=== PATIENT | female | born 1975 | race Caucasian/White ===

== ENCOUNTER 2018-02-07 15:25 | Emergency (ER) | payer BC ==
[~2018-02-07] VITALS: Ht 157.5 cm; Wt 81.8 kg
[~2018-02-07 15:25] MED LIST: LEVEMIR100 U/ML SQ; LEVIMIR SQ; NO HOME MEDICATIONS; NORCO 325 MG-51 TAB PO; PEN-VEE K500 MG PO; PRENATAL1 TA1 PO; PROTONIX 40MG T40 MG PO
[2018-02-07 15:29] VITALS: BP 137/87; TEMP 98.2
[2018-02-07] MEDS ORDERED: CRUTCHES MC (16:24)
[2018-02-07] MEDS ORDERED: NORCO 325 MG-51 TAB PO (16:43)
[2018-02-07 17:00] VITALS: PULSE 75
== END 2018-02-07 17:05 | disposition home or self-care (01) ==
LOC: COL.ER 15:25
DX: S92.352A Displaced fracture of fifth metatarsal bone, left foot, initial encounter for closed fracture (principal); Z98.51 Tubal ligation status; Z98.890 Other specified postprocedural states; Z90.89 Acquired absence of other organs; X50.0XXA Overexertion from strenuous movement or load, initial encounter; Y92.89 Other specified places as the place of occurrence of the external cause
CPT/HCPCS: Q4045

== ENCOUNTER → 2019-05-09 | Outpatient (CLI) | payer BC ==
[~2019-05-09] MED LIST changes: +CRUTCHES MC
== END ==
LOC: COL.RAD 05-03 09:45
DX: K80.20 Calculus of gallbladder without cholecystitis without obstruction (principal)

== ENCOUNTER 2019-05-23 10:40 | Day surgery (SDC) | payer BC ==
[2019-05-23] VITALS (8 sets, daily range): BP systolic 110–132; BP diastolic 66–76; PULSE 54–69; TEMP 97.7–98.4
[~2019-05-23] VITALS: Ht 157.5 cm; Wt 77.0 kg
--- NOTE | 2019-05-23 11:32 | NUR ---
TO RM AT 1055- CALL LIGHT IN REACH AT BEDSIDE.
[2019-05-23] MEDS ORDERED: NORCO 325 MG-51 TAB PO (14:45)
[2019-05-23] MEDS ORDERED: MOTRIN 600600 MG/TAB PO (14:46)
[2019-05-23] MEDS ORDERED: COLACE 100100 MG/CAP PO (14:46)
--- NOTE | 2019-05-23 15:25 | NUR ---
Patient returns to room 6 per cart from PACU accompanied by Joann ZAVALA and arouses to verbal stimuli. Shultz set dressing dry x4 on abdomen. Abdomen soft and rounded. Denies pain or nausea. IV fluids infusing. Siderails up x2 and call light in reach. Spouse in room. Allowed to rest.
--- NOTE | 2019-05-23 15:55 | NUR ---
Patient is resting and tolerates water.
--- NOTE | 2019-05-23 16:10 | NUR ---
States that she is having right shoulder discomfort and rates pain 3/10. States does not currently want pain medication. Has been sipping on water without nausea.
--- NOTE | 2019-05-23 16:15 | NUR ---
Assisted up to ambulate in the hallway and does well. States that she is slightly light headed.
--- NOTE | 2019-05-23 16:25 | NUR ---
Returns to room and after walking in the hallway and also was able to void. States that she feels hungry and slightly nauseated. Wishes to attempt to eat crackers and sip on grape juice.
--- NOTE | 2019-05-23 16:30 | NUR ---
Zofran 4mg IV given for slight nausea. Has been eating saltine crackers and sipping on juice.
--- NOTE | 2019-05-23 16:37 | NUR ---
Medicated with [place] 5mg one tab for complaints of mild right shoulder pain. Will continue to monitor. States nausea is subsiding.
--- NOTE | 2019-05-23 16:55 | NUR ---
Denies further pain or nausea. States that she is ready to go home. IV discontinued.
--- NOTE | 2019-05-23 17:10 | NUR ---
Given dismissal instructions and voices understanding of these. Provided scripts for [place], Colace, and Motrin. Provided follow up appointment date and time. Instructions signed. Patient dresses self. Spouse in room.
--- NOTE | 2019-05-23 17:23 | NUR ---
Patient dismissed to home driven by spouse and taken to the front door per wheelchair and assisted into car by this RN with dismissal instructions in hand.
== END 2019-05-23 17:23 | disposition home or self-care (01) ==
LOC: SDCO 10:40
DX: K80.10 Calculus of gallbladder with chronic cholecystitis without obstruction (principal); Z82.49 Family history of ischemic heart disease and other diseases of the circulatory system; Z80.0 Family history of malignant neoplasm of digestive organs; Z80.6 Family history of leukemia; Z88.5 Allergy status to narcotic agent
CPT/HCPCS: J1100; J1885; J2250; J2405; J2704; J2710; J3010; J7120; Q9967

== ENCOUNTER 2022-09-09 10:31 | Outpatient (RCR) | payer OTHER ==
[~2022-09-09 10:31] MED LIST changes: +COLACE 100100 MG/CAP PO; +MOTRIN 600600 MG/TAB PO
== END 2022-09-11 ==
LOC: WSOH
DX: M79.641 Pain in right hand (principal); Y99.0 Civilian activity done for income or pay